=== PATIENT | female | born 1945 | race Asian ===

== ENCOUNTER 2020-08-12 11:49 | Inpatient (IN) | payer MEDICARE ==
[~2020-08-12] VITALS: Ht 157.5 cm; Wt 51.3 kg
[2020-08-12] MEDS ORDERED: BISA5TAB10 PO (16:52)
[2020-08-12] MEDS ORDERED: CYAN10006 IM (16:52)
[2020-08-12] MEDS ORDERED: ENOX40DI SQ (16:52)
[2020-08-12] MEDS ORDERED: OLAN10VI IM ×2 (16:52)
[2020-08-12] MEDS ORDERED: RISP0.2515 PO ×2 (16:52)
[2020-08-12] MEDS ORDERED: MELA3TAB41 PO (16:52)
[2020-08-12] MEDS ORDERED: BISACODYL (5 MG) 5 MG TABLET.DR PO PRN (18:30)
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
[2020-08-12 20:00] VITALS: BP 94/66
[2020-08-12] MEDS ORDERED: TEMAZEPAM 7.5 MG CAPSULE PO PRN (20:00)
[2020-08-12] MEDS ORDERED: MAGNESIUM HYDROXIDE 30 ML UDC PO PRN (20:00)
[2020-08-12] MEDS ORDERED: LORAZEPAM 0.5 MG TABLET PO PRN (20:00)
[2020-08-12] MEDS ORDERED: BLOOD SUGAR DIAGNOSTIC 1 EACH STRIP IN ONE (20:00)
[2020-08-12] MEDS ORDERED: ACETAMINOPHEN 325 MG TABLET PO PRN (20:00)
[2020-08-12] MEDS ORDERED: MAG HYDROX/AL HYDROX/SIMETH 30 ML UDC PO PRN (20:00)
[2020-08-12 20:13] VITALS: BP 94/66
--- NOTE | 2020-08-13 08:50 | NUR ---
RN-CO: MARALEONOR REFUSED TO ALLOW ME TO GET SPECIMEN FOR MRSA. SHE STATED, "GET OUT YOU BITCH OR YOU WILL GET HURT!" SHE TRIED TO THROW THE FOOD TO ME.
[2020-08-13] MEDS ORDERED: ENOXAPARIN SODIUM 40 MG/0.4 ML DISP.SYRIN SQ SCH (09:00)
[2020-08-13] MEDS ORDERED: OLANZAPINE 10 MG VIAL IM STA (12:23)
--- NOTE | 2020-08-13 12:24 | NUR ---
RN-CO: PATIENT IS REFUSING CARE, VERBALLY ABUKSIVE TO STAFF AND HER PSYCHIATRIST, TRIED TO THROW WATER TO DR GUO, REFUSED PO ATIVAN. MD ORDERED ZYPREXA 5 MG IM STAT NOTED AND CARRIED OUT.
[2020-08-13] MEDS ORDERED: OLANZAPINE 10 MG VIAL IM ONE (13:00)
[2020-08-13 16:50] VITALS: BP 130/78
--- NOTE | 2020-08-13 20:43 | NUR ---
NURSES NOTES: EKG RESULT RELAYED TO DR. GUO. MESSAGED ACKNOWLEDGED, NO NEW ORDERS GIVEN THIS TIME.
[2020-08-13] MEDS: risperiDONE-M 0.5 MG TAB.RAPDIS PO SCH (21:00)
--- NOTE | 2020-08-13 21:22 | NUR ---
NURSES NOTES: PATIENT REFUSED HER SCHEDULED MEDICATION- RISPERDAL 0.5 MG PO-PER PATIENT "YOU ARE GOING TO GIVE ME VACCINE AGAIN, WHAT? TO KILL ME?, YOU BETTER GET OUT OR ELSE" STOCK PLAN ADMINISTRATOR EXPLAINED THE PURPOSE OF THE MEDICATION, HOWEVER PATIENT STILL REFUSED.
[2020-08-14] MEDS: risperiDONE-M 0.5 MG TAB.RAPDIS PO SCH ×2 (08:01→21:00)
--- NOTE | 2020-08-14 08:01 | NUR ---
RN-CO: PATIENT REFUSED HER RISPERDAL PO. ENC 3X THEN SHE GOT AGITATED.
--- NOTE | 2020-08-14 09:53 | NUR ---
JOSEFA Initial Discharge Plan: Patient was currently residing at [address] [place] [address] ([phone]) renting a room. Pt is now allowed to return due to homicidal ideation and attempt. Patient's son Chris Acuna ([phone]) is involved and is requesting SNF placement. JOSEFA will continue to work with patient, family, and MD to ensure a safe and proper discharge plan.
--- NOTE | 2020-08-14 09:53 | NUR ---
JOSEFA Family Contact: JOSEFA spoke with patient's son Chris Acuna ([phone]) regarding treatment and discharge plan. He is requesting SNF placement nad stated Addendum: 08/14/20 at 0954 by DANIEL CANTU He is requesting SNF placement and stated pt cannot return to her current residence due to homicidal ideation ad attempt.
--- NOTE | 2020-08-14 10:03 | NUR ---
RN-CO: PATIENT REFUSED HER LAB WORK IN AM.
--- NOTE | 2020-08-14 10:10 | NUR ---
JOSEFA Coordination of Care: This SW sent patient's clinicals to David rowan from [facility] ([phone] for review. This SW sent H & P notes, medication list, and laboratory. Addendum: 08/14/20 at 1354 by DANIEL CANTU Patient got denied from [facility] however is accepted to sister facility [facility].
--- NOTE | 2020-08-14 10:22 | NUR ---
PC Hearing: Pt had probable cause hearing today and [phone] hold is upheld for GD.
--- NOTE | 2020-08-14 14:41 | NUR ---
RN-CO: PATIENT REFUSED TO PROVIDE URINE SPECIMEN. ASKED 3X AND SHE GOT UPSET.
--- NOTE | 2020-08-14 16:42 | NUR ---
RNTomasCO: PT REFUSED BLOOD DRAW AGAIN.
--- NOTE | 2020-08-14 18:24 | NUR ---
RN-CO: Patient remains isolative, angry and with pressured speech. Noted she was talking to unseen others and cursing. She refused to participate in group activities, and provide urine specimen.
[2020-08-15] MEDS: CYANOCOBALAMIN 1,000 MCG/ML VIAL IM SCH (09:00)
[2020-08-15] MEDS: risperiDONE-M 0.5 MG TAB.RAPDIS PO SCH ×2 (09:00→17:03)
--- NOTE | 2020-08-15 09:00 | NUR ---
RN NOTE- PT THREATENING POSTURING USING PROFANITY, REFUSING RX NOT DIRECTABLE MD AWARE.".
--- NOTE | 2020-08-15 09:45 | NUR ---
RN NOTE- PT AGGRESSIVE POSTURING AND THREATENING. REFUSING RX, DR GUO ORDERED ZYPREXA 5 MG IM. COMPLIED W SECURITY AT BEDSIDE
[2020-08-15] MEDS ORDERED: OLANZAPINE 10 MG VIAL IM STA (09:46)
--- NOTE | 2020-08-15 13:24 | NUR ---
Individual Counseling: certified social workers in health care met with patient for brief counseling to help address patients presenting problem with labile mood. Patient was verbally abusive towards this SW and asked SW to leave from her room. SW was unable to conduct individual counseling.
--- NOTE | 2020-08-15 14:16 | NUR ---
Court Contact: This SW contacted court ([phone]) and spoke with Rose who confirmed that riese hearing is scheduled on 08/18 at 1:30PM. DANIEL Gilmore notified Dr. Butterfield.
--- NOTE | 2020-08-15 20:00 | NUR ---
RN NOTES : VITAL SIGNS REFUSAL PT. REFUSED VITAL SIGNS ,ENCOURAGED, RISKS BENEFITS EXPLINED , PT. STRONGLY REFUSED, WILL CONTINUITY WITH CARE.
--- NOTE | 2020-08-16 06:55 | NUR ---
RN NOTES: PT. RESTING HER BED, PT. BEHAVIOR UNCOOPERTIVE ,EASILY AGITAED, NO ACUTE DISTRESS NOTES , NO CHANGE OF CONDITION NOTED , DENIES ANY PAIN DISCOMFORT AT THIS TIME , ALL NEEDS ATTENDED AND ANTICIPATED, WILL ENDORSE TO DAY NURSE FOR CONTINUITY OF CARE .
--- NOTE | 2020-08-16 06:59 | NUR ---
RN NOTES :AM LABS REFUSAL PT. REFUSED AM LABS ,ENCOURAGED, RISKS BENEFITS EXPLINED , PT. STRONGLY REFUSED, WILL CONTINUITY WITH CARE.
[2020-08-16] MEDS: risperiDONE-M 0.5 MG TAB.RAPDIS PO SCH ×3 (08:21→17:18)
--- NOTE | 2020-08-16 10:30 | NUR ---
RN-CO: PATIENT REFUSED LAB WORKS AGAIN.
[2020-08-16] MEDS: ENSURE ENLIVE CHOC 237 ML CAN PO SCH ×2 (12:08→17:11)
[2020-08-16 16:00] VITALS: BP 114/78
--- NOTE | 2020-08-17 00:02 | NUR ---
RN NOTES: OFFERED PT. RESTORIL 7.5 MG PO PRN , TOOK OUT FROM OMNICELL , OPEN THE RESTORIL PACKAGE BUT PT. REFUSED TO TAKE , WASTE RESTORIL 7.5 MG PO PRN IN OMNICELL AND WITNESS BY ALYSSA PERDOMO RN .
--- NOTE | 2020-08-17 06:49 | NUR ---
RN NOTES: PT. RESTING HER BED, PT. BEHAVIOR UNCOOPERTIVE ,EASILY AGITAED, PARANOID,DISHELVED, NO ACUTE DISTRESS NOTES , NO CHANGE OF CONDITION NOTED , DENIES ANY PAIN DISCOMFORT AT THIS TIME , ALL NEEDS ATTENDED AND ANTICIPATED, WILL ENDORSE TO DAY NURSE FOR CONTINUITY OF CARE .
[2020-08-17] MEDS: risperiDONE-M 0.5 MG TAB.RAPDIS PO SCH ×3 (08:46→16:21)
[2020-08-17] MEDS: ENSURE ENLIVE CHOC 237 ML CAN PO SCH ×3 (08:46→16:25)
[2020-08-18] MEDS: risperiDONE-M 0.5 MG TAB.RAPDIS PO SCH (08:13)
[2020-08-18] MEDS: ENSURE ENLIVE CHOC 237 ML CAN PO SCH ×3 (08:14→15:49)
[2020-08-18] MEDS ORDERED: OLANZAPINE 10 MG VIAL IM PRN ×3 (14:30→18:00)
[2020-08-18] MEDS ORDERED: risperiDONE-M 0.5 MG TAB.RAPDIS PO SCH ×3 (14:30→22:00)
--- NOTE | 2020-08-18 15:29 | NUR ---
RN NOTE:Patient seen by dr. Borges and he canceled EKG .EKG from 08/13/[address] Borges and he said he is ok with the result .
[2020-08-18] MEDS ORDERED: LORAZEPAM INJ 2 MG/ML VIAL IM STA (15:49)
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
[2020-08-19] MEDS: ENSURE ENLIVE CHOC 237 ML CAN PO SCH ×3 (07:36→17:00)
--- NOTE | 2020-08-19 11:06 | NUR ---
Individual Intervention: SW met with the pt at bedside and attempted to conduct an individual intervention around her refusing her medications. Pt stated that she did not want to talk to the SW and stated that the SW "does not know anything." SW deemed this pt inappropriate for individual therapy at this time due to her aggression.
[2020-08-19] MEDS ORDERED: INVEGA SUSTENNA 156 MG IM ONE (12:30)
[2020-08-19 22:08] LABS: BASOPHILS # (AUTO) 0.1 /CMM (0.0-0.2); BASOPHILS % (AUTO) 1.1 % (0.0-2.0); EOSINOPHILS % (AUTO) 2.9 % (0.0-6.0); HEMATOCRIT 41 % (33-45); HEMOGLOBIN 13.5 g/dL (11.5-14.8); LYMPHOCYTES # (AUTO) 1.7 /CMM (0.8-4.8); LYMPHOCYTES % (AUTO) 25.7 % (20.0-44.0); MEAN CORPUSCULAR HGB CONC 33 g/dl (31.0-36.0); MEAN CORPUSCULAR VOLUME 94 fL (82-100); MONOCYTES # (AUTO) 0.8 /CMM (0.1-1.30); MONOCYTES % (AUTO) 11.6 % (2.0-12.0); NEUTROPHILS % (AUTO) 58.7 % (43.0-81.0); PLATELET COUNT (AUTO) 206 /CMM (150-450); RED BLOOD CELL COUNT(AUTO) 4.32 MIL/uL (4.0-5.2); WHITE BLOOD COUNT (AUTO) 6.8 K/uL (4.3-11.0)
[2020-08-19 22:24] LABS: ALANINE AMINOTRANSFERASE 24 U/L (12-78); ALBUMIN 3.2 g/dL (3.4-5.0); ALKALINE PHOSPHATASE 73 U/L (46-116); ASPARTATE AMINOTRANSFERASE 20 U/L (15-37); BILIRUBIN,TOTAL 0.3 mg/dL (0.2-1.0); CALCIUM, SERUM 8.8 mg/dL (8.5-10.1); CARBON DIOXIDE 27 mmol/L (21-32); CHLORIDE 105 mmol/L (98-107); CREATININE 0.7 mg/dL (0.6-1.3); GLUCOSE 90 mg/dL (74-106); MAGNESIUM 2.3 mg/dL (1.8-2.4); PHOSPHORUS 4.1 mg/dL (2.5-4.9); POTASSIUM 3.8 mmol/L (3.5-5.1); SODIUM SERUM 141 mmol/L (136-145); UREA NITROGEN, BLOOD 25 mg/dL (7-18)
[2020-08-20 08:00] VITALS: BP 111/75
[2020-08-20] MEDS: ENSURE ENLIVE CHOC 237 ML CAN PO SCH ×3 (08:58→16:06)
[2020-08-20 11:59] LABS: MAGNESIUM 2.4 mg/dL (1.8-2.4)
[2020-08-20 12:12] LABS: THYROID STIMULATING HORMONE 0.881 uIU/mL (0.358-3.74)
[2020-08-20 16:00] VITALS: BP 104/68
[2020-08-20 20:23] VITALS: BP 136/65
[2020-08-21] MEDS: ENSURE ENLIVE CHOC 237 ML CAN PO SCH ×3 (07:44→16:04)
--- NOTE | 2020-08-21 12:40 | NUR ---
SNF Referral: JOSEFA faxed a referral to [facility] with attention to Lovely: [phone].
--- NOTE | 2020-08-21 15:08 | NUR ---
SNF Contact: Lovely ([phone]) from [facility] contacted the SW and stated that the pt was accepted to their facility.
[2020-08-21 16:00] VITALS: BP 88/61
[2020-08-21] MEDS: DIVALPROEX SODIUM 125 MG CAP.SPRINK PO SCH ×2 (16:10→21:37)
--- NOTE | 2020-08-21 19:30 | NUR ---
GPS RN NOTE, RECEIVED PATIENT AWAKE AND IN ROOM, NO S/S OR COMPLAINTS OF PAIN AT THIS TIME. PATIENT IS DISPLAYING NO S/S OF APPARENT DISTRESS AT THIS TIME. PATIENT BREATHING IS UNLABORED WITH EQUAL RISE AND FALL OF THE CHEST. PATIENT IS ALERT AND ORIENTED X 1 ON ROOM AIR WITH A SPO2 97%. PATIENT IS SELECTIVE WITH MEDICATIONS, CONFUSED, SUSPICIOUS, AND COOPERATIVE. PATIENT DENIES SUICIDAL AND HOMICIDAL IDEATIONS AT THIS TIME. PATIENT ASSISTED WITH TURNING AND REPOSITIONING Q2HR AND PRN FOR COMFORT AND CIRCULATION. PATIENT HAS NO NEEDS AT THIS TIME. PATIENT EDUCATED ON THE USE OF THE CALL BASS. WILL CONTINUE TO MONITOR THIS PATIENT Q15 MINUTES WITH THE HELP OF STAFF TO MAINTAIN SAFETY.
[2020-08-21 20:21] VITALS: BP 99/55
[2020-08-22] MEDS: ENSURE ENLIVE CHOC 237 ML CAN PO SCH ×3 (08:19→16:34)
[2020-08-22] MEDS: DIVALPROEX SODIUM 125 MG CAP.SPRINK PO SCH ×2 (08:19→20:21)
[2020-08-22] MEDS: CYANOCOBALAMIN 1,000 MCG/ML VIAL IM SCH (08:43)
--- NOTE | 2020-08-22 09:00 | NUR ---
RN NOTE- RN NOTE ALERT ORIENTED TO PERSON PLACE CONFUSED, DELUSIONAL PARANOID GUARDED, PO INTAKE GOOD MED COMPLIANT ISOLATIVE OPPOSITIONAL
[2020-08-22 20:07] VITALS: BP 137/80
--- NOTE | 2020-08-23 08:00 | NUR ---
RECEIVED PT. IN BED,PARANOID,DELUSIONAL,VERY SUSPICIOUS.ALERT AND ORIENTED X3.ISOLATIVE.
[2020-08-23] MEDS: DIVALPROEX SODIUM 125 MG CAP.SPRINK PO SCH ×2 (09:15→21:24)
[2020-08-23] MEDS: ENSURE ENLIVE CHOC 237 ML CAN PO SCH ×3 (09:17→16:02)
--- NOTE | 2020-08-23 12:18 | NUR ---
given ativan for agitation.
--- NOTE | 2020-08-23 17:34 | NUR ---
REFUSED VS ALL DAY'
[2020-08-23 20:04] VITALS: BP 119/71
[2020-08-23 20:05] VITALS: BP 119/71
[2020-08-24 08:00] VITALS: BP 115/74
[2020-08-24] MEDS: ENSURE ENLIVE CHOC 237 ML CAN PO SCH ×3 (08:19→16:12)
[2020-08-24] MEDS: DIVALPROEX SODIUM 125 MG CAP.SPRINK PO SCH ×3 (08:35→21:00)
[2020-08-24 16:00] VITALS: BP 107/68
[2020-08-24 20:00] VITALS: BP 102/64
--- NOTE | 2020-08-24 21:02 | NUR ---
GPS RN NOTES: PT REFUSED 2100 DEPAKOTE/125MG 1 TAB PO ORDERED. WILL CONTINUE TO MONITOR.
--- NOTE | 2020-08-25 06:42 | NUR ---
GPS RN CLOSING NOTES: PATIENT AWAKE, A/O X2-3. SLEPT 6 HR THIS SHIFT. NO S/S OF DISTRESS. RESPIRATION EVEN AND UNLABORED WITH EQUAL RISE AND FALL OF THE CHEST ON ROOM AIR. SAFETY PRECAUTION MAINTAINED, BED IN LOWEST POSITION AND LOCKED. Q15 MINUTES SAFETY ROUND CONTINUED. ALL PATIENT CARE NEEDS MET ANTICIPATED. WILL CONTINUE TO MONITOR PATIENT FOR MOOD, BEHAVIOR AND SAFETY AND ENDORSE TO AM SHIFT.
--- NOTE | 2020-08-25 07:30 | NUR ---
GPS RN NOTES BEDSIDE ENDORSEMENT DONE W/ PREVIOUS SHIFT. PATIENT IN BED AWAKE AND VERBALLY RESPONSIVE. BREATHING EVEN AND UNLABORED, ON ROOM AIR, NOT IN ACUTE DISTRESS. PATIENT A/O X1-2, VERBALIZES ACCEPTING HELP ONLY FROM HER , UNABLE TO STATE 'S NAME. ABLE TO SPEAK JAPANESE/TAGALOG. SAFETY PRECAUTIONS IN PLACE. WILL CONTINUE TO MONITOR.
[2020-08-25] MEDS: ENSURE ENLIVE CHOC 237 ML CAN PO SCH ×3 (07:55→16:08)
[2020-08-25 08:00] VITALS: BP 109/68
[2020-08-25] MEDS: DIVALPROEX SODIUM 125 MG CAP.SPRINK PO SCH ×2 (08:40→16:10)
[2020-08-25 16:00] VITALS: BP 117/70
--- NOTE | 2020-08-25 19:10 | NUR ---
GPS RN NOTES PATIENT IN THE ROOM AWAKE AND VERBALLY RESPONSIVE. PATIENT REQUIRED CONSTANT REDIRECTION W/ MEDICATION COMPLIANCE; NO INJURY NOTED. SAFETY PRECS MAINTAINED. WILL ENDORSE TO HACKLER DOLL WIGS RN FOR CHRISTOPHER.
[2020-08-25 19:36] VITALS: BP 104/72
--- NOTE | 2020-08-25 19:50 | NUR ---
RN NOTES : UNABLE TO SCANE BAR CODE ,ELLE SUSTENNA 78 MG IM GIVEN PER MD ORDERS WITH STAFF SUMAYA RN, MISTY RN AND FIRE LIEUTENANT MARINE, PT. TOLERATE WELL , WILL CONTINUE WITH MONITOR.
[2020-08-25] MEDS ORDERED: MISCELLANEOUS MED 1 EA EA XX ONE (20:00)
--- NOTE | 2020-08-25 20:30 | NUR ---
RN NOTES: ELLE JOSEPH PT.TOLERATE WELL , VITAL SINS WNL , BP 110 /66 ,P 80 , RESP 20, SO2 98% ,TEMP 98.0 , NO ACUTE DISTRESS NOTED, PT. DENIES ANY PAIN DISCOMFORT ATT HIS TIME , WILL CONTINUE TO MONITOR.
--- NOTE | 2020-08-26 06:31 | NUR ---
RN NOTES: PT. REFUSED AM LABS ,ENCOURAGED X3 PT. STRONGLY REFUSED, ENDORSE TO AM NURSE FOR CONTINUITY WITH CARE.
--- NOTE | 2020-08-26 07:43 | NUR ---
RN NOTES: PT. RESTING IN HER BED, PT. BEHAVIOR COOPERTIVE IN SHIFT, NO ACUTE DISTRESS NOTES , NO CHANGE OF CONDITION NOTED , DENIES ANY PAIN DISCOMFORT AT THIS TIME , ALL NEEDS ATTENDED AND ANTICIPATED, WILL ENDORSE TO DAY NURSE FOR CONTINUITY OF CARE .
[2020-08-26] MEDS: ENSURE ENLIVE CHOC 237 ML CAN PO SCH ×3 (08:09→16:40)
[2020-08-26] MEDS: DIVALPROEX SODIUM 125 MG CAP.SPRINK PO SCH ×3 (09:21→17:25)
[2020-08-26] MEDS ORDERED: risperiDONE-M 0.5 MG TAB.RAPDIS PO SCH (13:00)
--- NOTE | 2020-08-26 13:39 | NUR ---
Individual Intervention: SW attempted to meet with the pt at bedside and discuss her discharge planning but the pt refused to speak to the SW and stated, "I do not want to talk to you. I need pants." Pt kept repeating herself even after the SW stated that she would get pants for her. Pt appeared to be agitated and inappropriate for therapy.
--- NOTE | 2020-08-26 15:22 | NUR ---
ALERT AND ORIENTED X2-3.VERY SUSPICIOUS,REFUSING VS.ISOLATIVE.IN ROOM.
[2020-08-26 19:09] LABS: ALBUMIN 3.3 g/dL (3.4-5.0); BILIRUBIN,TOTAL 0.1 mg/dL (0.2-1.0); CALCIUM, SERUM 8.9 mg/dL (8.5-10.1); CREATININE 0.9 mg/dL (0.6-1.3); POTASSIUM 3.8 mmol/L (3.5-5.1); TOTAL PROTEIN, SERUM 7.2 g/dL (6.4-8.2)
[2020-08-26 19:31] VITALS: BP 118/80
[2020-08-26 19:48] LABS: BASOPHILS % (AUTO) 0.8 % (0.0-2.0); HEMATOCRIT 41 % (33-45); HEMOGLOBIN 13.6 g/dL (11.5-14.8); LYMPHOCYTES # (AUTO) 1.7 /CMM (0.8-4.8); LYMPHOCYTES % (AUTO) 26.9 % (20.0-44.0); MEAN CORPUSCULAR HGB CONC 33 g/dl (31.0-36.0); MEAN CORPUSCULAR VOLUME 95 fL (82-100); MONOCYTES # (AUTO) 0.5 /CMM (0.1-1.30); MONOCYTES % (AUTO) 8.1 % (2.0-12.0); NEUTROPHILS # (AUTO) 3.8 /CMM (1.8-8.9); NEUTROPHILS % (AUTO) 61.2 % (43.0-81.0); PLATELET COUNT (AUTO) 210 /CMM (150-450); RED BLOOD CELL COUNT(AUTO) 4.36 MIL/uL (4.0-5.2); WHITE BLOOD COUNT (AUTO) 6.1 K/uL (4.3-11.0)
[2020-08-27] MEDS: ENSURE ENLIVE CHOC 237 ML CAN PO SCH ×3 (08:43→16:47)
[2020-08-27] MEDS: DIVALPROEX SODIUM 125 MG CAP.SPRINK PO SCH ×4 (08:43→17:03)
--- NOTE | 2020-08-27 09:30 | NUR ---
very angry,raising arm with female rn approaching,in attempt to give meds iin am.refused meds.
--- NOTE | 2020-08-27 09:35 | NUR ---
rn spoke with dr. ji,alternative method suggested to give pt. meds.
[2020-08-27] MEDS: risperiDONE-M 0.5 MG TAB.RAPDIS PO SCH ×2 (10:15→17:03)
--- NOTE | 2020-08-27 10:15 | NUR ---
rn brought in male coworker with her and pt. took am meds.
--- NOTE | 2020-08-27 11:03 | NUR ---
Probable Cause Hearing: Pts [phone] hold was upheld for grave disability.
--- NOTE | 2020-08-27 13:45 | NUR ---
Family Contact: JOSEFA called the patient's son Chris Acuna ([phone]) and left a voicemail that informed him that the pt is going to be discharged to [facility] tomorrow.
--- NOTE | 2020-08-27 13:54 | NUR ---
SNF Contact: SW contactd Lovely ([phone]) from [facility] and informed her that the pt will be discharged the following day.
--- NOTE | 2020-08-27 15:43 | NUR ---
at this time refusing ct of head.
--- NOTE | 2020-08-28 05:51 | NUR ---
NURSES NOTES: NURSE ASSIGNED TRIED TO DO COVID SWAB TESTING FOR PATIENT. SHE INITIALLY AGREED,BUT WHEN NURSE BROUGHT IN THE STUFF, PATIENT SUDDENLY REFUSED. EXPLAINED TO PATIENT THE NEED FOR THE COVID TESTING BUT PATIENT STILL REFUSED.
--- NOTE | 2020-08-28 08:08 | NUR ---
PER RN , PT REFUSING EXAM
[2020-08-28] MEDS: ENSURE ENLIVE CHOC 237 ML CAN PO SCH ×2 (08:38→12:56)
[2020-08-28] MEDS: risperiDONE-M 0.5 MG TAB.RAPDIS PO SCH (09:00)
[2020-08-28] MEDS: DIVALPROEX SODIUM 125 MG CAP.SPRINK PO SCH ×2 (09:00→12:44)
--- NOTE | 2020-08-28 09:38 | NUR ---
RN-CO: Patient is alert and oriented x 3-4, able to make needs known. She denied suicidal and homicidal ideation. Denied auditory and visual hallucination. NO acute distress noted. She was medically cleared for discharge by Dr Linn and Dr Butterfield ordered to discontinue hold and discharge her to [facility]. Report was given to Sarah BHATIA. Patient refused PNA and Flu vaccine when offered. She also doesn't want skin check. Her discharge papers were discussed to her and her medications and she verbalized understanding. All belongings will be given back to her upon discharge.
--- NOTE | 2020-08-28 13:44 | NUR ---
RN-CO: YOVANNY MCCLELLAN [phone] MADE AWARE AND AGREED OF THE PLACEMENT.
--- NOTE | 2020-08-28 14:58 | NUR ---
Discharge Note: Pt will be discharged to [facility] SNF located at [address] [place] [address]; . Pt will be transported via [facility] at 12PM. Pts son Chris Acuna ([phone]) was made aware of the placement. Upon discharge, the pt appears to be in a dysphoric mood and presents with a distressed affect. Pt appears to be alert and oriented x4 (time, place, self, and situation). Pt denies both suicidal and homicidal ideation as well as auditory and visual hallucinations. Pt will be under the care of her psychiatrist, Dr. Butterfield, located at [address] [facility] [address], [place] [address]; and her director of archives, Dr. Murphy, located at [address] [address]; . The choice of vendor and multidisciplinary exit care form was done, printed, signed, and given to the patient.
[2020-08-28 15:30] VITALS: BP 131/89
--- NOTE | 2020-08-28 15:40 | NUR ---
RN-CO: AMBULANCE PICKED UP THE PATIENT. ALL BELONGINGS WAS GIVEN BACK.
== END 2020-08-28 15:45 | DRG 885 ==
LOC: GPS 15:13
PROVIDERS: ADMIT Psychiatry & Neurology Psychosomatic Medicine; ATTEND Nurse Practitioner Acute Care
DX: F20.9 Schizophrenia, unspecified (principal); F01.50 Vascular dementia, unspecified severity, without behavioral disturbance, psychotic disturbance, mood disturbance, and anxiety; F29 Unspecified psychosis not due to a substance or known physiological condition; F41.9 Anxiety disorder, unspecified; R63.4 Abnormal weight loss; Z68.20 Body mass index [BMI] 20.0-20.9, adult; R45.1 Restlessness and agitation; Z91.14 Patient's other noncompliance with medication regimen; Z87.891 Personal history of nicotine dependence
CPT/HCPCS: 36415; 71045-TC; 80053-TC; 80061-TC; 80164-TC; 82962-TC; 83735-TC; 84100-TC; 84439-TC; 84443-TC; 85025-TC; 87081-TC; 93307-TC; J2060; J3420; J3490

== ENCOUNTER 2020-09-05 10:14 | Outpatient (CLI) | payer MEDICARE ==
[~2020-09-05 10:14] MED LIST: BISA5TAB10 PO; CYAN10006 IM; ENOX40DI SQ; MELA3TAB41 PO
== END 2020-09-05 23:59 | disposition home or self-care (01) ==
LOC: CT 10:14
PROVIDERS: ATTEND Internal Medicine
DX: I67.82 Cerebral ischemia (principal); F03.90 Unspecified dementia, unspecified severity, without behavioral disturbance, psychotic disturbance, mood disturbance, and anxiety
CPT/HCPCS: 70450-TC

== ENCOUNTER 2021-04-10 08:01 | Inpatient (IN) | payer MEDICARE, OTHER ==
[~2021-04-10] VITALS: Ht 157.5 cm; Wt 47.2 kg
[2021-04-10] MEDS ORDERED: COGENTIN PO (08:31)
[2021-04-10] MEDS ORDERED: ACET-868 PO (08:31)
[2021-04-10] MEDS ORDERED: RISP0.5T5 PO (08:31)
[2021-04-10] MEDS ORDERED: MULT-447 PO (08:31)
[2021-04-10] MEDS ORDERED: MAGN400O6 PO (08:31)
[2021-04-10] MEDS ORDERED: CRAN425C6 PO (08:31)
--- NOTE | 2021-04-10 08:40 | NUR ---
THE PATIENT BIBPA HITTING STAFF FROM SNF PER EMS. THE PATIENT IS ALERT AND ORIENTED X3. DENIES SI/HI. DENIES PAIN. IN ROOM AIR AND DENIES SOB. RESPIRATION REGULAR AND UNLABORED. WILL CONTINUE TO MONITOR THE PATIENT.
--- NOTE | 2021-04-10 08:40 | NUR ---
LEFT A VOICEMAIL TO PSYCH CLINICIAN MAGO SULLIVAN.
--- NOTE | 2021-04-10 08:50 | NUR ---
ASKED NURSING SUP FOR BED. WAITING FOR RESPONSE.
[2021-04-10 08:56] LABS: BASOPHILS % (AUTO) 0.7 % (0.0-2.0); EOSINOPHILS % (AUTO) 1.9 % (0.0-6.0); HEMATOCRIT 44 % (33-45); HEMOGLOBIN 14.6 g/dL (11.5-14.8); LYMPHOCYTES # (AUTO) 1.5 K/uL (0.8-4.8); LYMPHOCYTES % (AUTO) 29.3 % (20.0-44.0); MEAN CORPUSCULAR HGB CONC 33 g/dl (31.0-36.0); MEAN CORPUSCULAR VOLUME 94 fL (82-100); MONOCYTES # (AUTO) 0.5 K/uL (0.1-1.30); MONOCYTES % (AUTO) 9.2 % (2.0-12.0); NEUTROPHILS % (AUTO) 58.9 % (43.0-81.0); PLATELET COUNT (AUTO) 225 K/uL (150-450); RED BLOOD CELL COUNT(AUTO) 4.67 MIL/uL (4.0-5.2)
--- NOTE | 2021-04-10 09:09 | NUR ---
COVID SWAB DONE AND SENT TO THE LAB
[2021-04-10 09:15] LABS: BILIRUBIN,URINE NEGATIVE (NEGATIVE); COLOR,URINE YELLOW (YELLOW); LEUKOCYTE ESTERASE ,URINE SMALL (NEGATIVE); NITRITE, URINE NEGATIVE (NEGATIVE); PROTEIN,URINE NEGATIVE (NEGATIVE); UGLUCOSE NEGATIVE (NEGATIVE); UROBILINOGEN,URINE 0.2 EU/dL (0.2)
[2021-04-10 09:16] LABS: ALANINE AMINOTRANSFERASE 21 U/L (12-78); ALBUMIN 3.8 g/dL (3.4-5.0); ALCOHOL, BLOOD < 3 mg/dL (0-0); ALKALINE PHOSPHATASE 67 U/L (46-116); ASPARTATE AMINOTRANSFERASE 21 U/L (15-37); BILIRUBIN,DIRECT 0.2 mg/dL (0.0-0.2); BILIRUBIN,TOTAL 0.6 mg/dL (0.2-1.0); CALCIUM, SERUM 8.6 mg/dL (8.5-10.1); CARBON DIOXIDE 31 mmol/L (21-32); CHLORIDE 106 mmol/L (98-107); CREATININE 0.8 mg/dL (0.6-1.3); GLUCOSE 108 mg/dL (74-106); POTASSIUM 3.8 mmol/L (3.5-5.1); SODIUM SERUM 140 mmol/L (136-145); TOTAL PROTEIN, SERUM 7.8 g/dL (6.4-8.2); UREA NITROGEN, BLOOD 13 mg/dL (7-18)
[2021-04-10 09:19] LABS: ACETAMINOPHEN < 10 ug/ml (10-30)
--- NOTE | 2021-04-10 10:01 | NUR ---
ROOM 220-A
--- NOTE | 2021-04-10 10:03 | NUR ---
CALLED ART AND ON THE WAY TO SEE THE PT.
[2021-04-10 10:08] LABS: BACTERIA,URINE Few /HPF (None Seen); RBC,URINE 0-2 /HPF (0-2); SQUAMOUS EPITHELIAL CELL,UR Moderate /HPF (None Seen)
--- NOTE | 2021-04-10 10:19 | NUR ---
REPORT GIVEN TO NURSE VILLALPANDO FROM GPS UNIT
--- NOTE | 2021-04-10 11:40 | NUR ---
THE PATIENT IS TRANFERED TO ROOM 220-A IN STABLE CONDITION AND PER POLICY.
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
[2021-04-10] MEDS ORDERED: MAG HYDROX/AL HYDROX/SIMETH 30 ML UDC PO PRN (12:00)
[2021-04-10] MEDS ORDERED: LORAZEPAM 0.5 MG TABLET PO PRN (12:00)
[2021-04-10] MEDS ORDERED: ACETAMINOPHEN 325 MG TABLET PO PRN (12:00)
[2021-04-10] MEDS ORDERED: TEMAZEPAM 7.5 MG CAPSULE PO PRN (12:00)
[2021-04-10] MEDS ORDERED: BLOOD SUGAR DIAGNOSTIC 1 EACH STRIP IN ONE (12:00)
[2021-04-10] MEDS ORDERED: MAGNESIUM HYDROXIDE 30 ML UDC PO PRN (12:00)
--- NOTE | 2021-04-10 12:39 | NUR ---
JOSEFA Initial Discharge Note: Patient currently resides at [facility] and will return back upon dc. JOSEFA confirmed with Luis acosta who stated pt is welcomed back. JOSEFA will work with the family and MD to coordinate appropriate discharge.
[2021-04-10] MEDS: CEPHALEXIN MONOHYDRATE 250 MG CAPSULE PO SCH ×2 (13:21→20:51)
--- NOTE | 2021-04-10 15:20 | NUR ---
JOSEFA Family Contact: SW contacted patient's son Chris ([phone]) and discussed treatment/discharge plan.
[2021-04-10 16:00] VITALS: BP 114/71
[2021-04-10] MEDS: risperiDONE 1 MG TABLET PO SCH ×2 (17:00→17:26)
--- NOTE | 2021-04-10 17:34 | NUR ---
RN-NOTES PATIENT REFUSED RISPERDAL 1MG P.O DESPITE EXPLANATIONS OF THE RISK AND BENEFITS. STATED" I DON'T TAKE ANYMORE MEDICINE". OFFERED X3
[2021-04-10 20:10] VITALS: BP 115/77
--- NOTE | 2021-04-11 05:53 | NUR ---
RN NOTES: PT. REFUSED AM LABS , ENCOURAGED X3 , RISKS AND BENEFITS EXPLINED , PT. BEHAVIOR UNCOOPERTIVE ,EASILY AGITATED, PER LAB WILL TRYING LATER AGAIN.
[2021-04-11 08:00] VITALS: BP 114/69
[2021-04-11] MEDS: CEPHALEXIN MONOHYDRATE 250 MG CAPSULE PO SCH ×3 (09:00→21:00)
[2021-04-11] MEDS: risperiDONE 1 MG TABLET PO SCH ×2 (09:00→17:00)
--- NOTE | 2021-04-11 09:25 | NUR ---
RN-NOTES PATIENT REFUSED ALL 0900AM MEDICATIONS INCLUDING RISPERDAL 1MG P.O AND KEFLEX ( ATB) P.O. OFFERED X3, PATIENT STATED" NO MORE MEDICINE,I DON'T CARE ABOUT MEDICINE". Addendum: 04/11/21 at 0955 by KWASI CUENCA RN SHAQUILLE GROVES MADE AWARE OF PATIENT ATB REFUSAL
--- NOTE | 2021-04-11 13:38 | NUR ---
RN-NOTES PATIENT REFUSED KEFLEX 250MG P.O. OFFERED X3.
--- NOTE | 2021-04-11 15:00 | NUR ---
RN-NOTES PATIENT REFUSED LAB DRAW DESPITE EXPLANATIONS OF THE RISK AND BENEFITS. ATTEMPTED X3.
[2021-04-11 16:00] VITALS: BP 119/71
--- NOTE | 2021-04-11 17:20 | NUR ---
RN-NOTES PATIENT STILL REFUSED RISPERDAL 1MG P.O, OFFERED X3
[2021-04-11 19:55] VITALS: BP 104/69
--- NOTE | 2021-04-11 20:06 | NUR ---
RN NOTE: LAB REFUSAL LINDA FROM LAB CALLED TO INFORM THAT PATIENT HAS BEEN REFUSING LIPID PANEL, CREATININE, HGBA1C, CMP X 3 & ORDER WILL BE CANCELLED. PER AM RN REPORT, PATIENT IS VERY UNCOOPERATIVE WITH LABS, MEDICINES & ADL CARE. NON COMPLAINT BUT TAKES GOOD PO INTAKE
[2021-04-11 20:10] VITALS: BP 104/69
--- NOTE | 2021-04-11 20:42 | NUR ---
RN NOTE DR. GUO NOTIFIED ABOUT PATIENT IS BEING UNCOOPERATIVE WITH LAB DRAW & LAB ORDERS HAS BEEN CANCELLED. DR. ROCHE REORDERED CMP, CREATININE, HGBA1C & LIPID PANEL IN AM ON 04/12/21. ORDER NOTED & CARRIED OUT. WILL CONTINUE TO MONITOR.
--- NOTE | 2021-04-11 21:44 | NUR ---
RN NOTE: MEDICATION REFUSAL PATIENT REFUSED KEFLEX 250 MG ORDERED X 3, DESPITE OF RISKS & BENEFITS EXPLANATIONS. PATIENT IS VERY UNCOOPERATIVE, NON COMPLAINT WITH MEDICATIONS & PLAN OF CARE. DR. GUO IS AWARE.
--- NOTE | 2021-04-12 06:06 | NUR ---
RN NOTE PATIENT REFUSED LABS THIS MORNING DESPITE OF RISKS & BENEFITS EXPLANATIONS, PATIENT IS NON COMPLAINT WITH PLAN OF CARE.
[2021-04-12 08:00] VITALS: BP 109/75
[2021-04-12] MEDS: CEPHALEXIN MONOHYDRATE 250 MG CAPSULE PO SCH ×3 (08:21→21:00)
[2021-04-12] MEDS: risperiDONE 1 MG TABLET PO SCH ×2 (08:22→17:00)
[2021-04-12 16:00] VITALS: BP 98/68
[2021-04-12 19:50] VITALS: BP 120/60
[2021-04-12 19:58] VITALS: BP 120/60
--- NOTE | 2021-04-12 21:36 | NUR ---
RN NOTE: MEDICATION REFUSAL PATIENT REFUSED KEFLEX 250 MG ORDERED X 3, DESPITE OF RISKS & BENEFITS EXPLANATIONS. PATIENT IS VERY UNCOOPERATIVE, NON COMPLAINT WITH MEDICATIONS & PLAN OF CARE.
--- NOTE | 2021-04-13 06:29 | NUR ---
RN NOTE PATIENT ALLOWED WATCH ENGINEER TO DRAW BLOOD FOR AM LABS AT THIS TIME. WAITING FOR LAB RESULTS.
[2021-04-13 08:00] VITALS: BP 125/72
[2021-04-13 08:21] LABS: ALBUMIN 3.5 g/dL (3.4-5.0); BILIRUBIN,TOTAL 0.3 mg/dL (0.2-1.0); CALCIUM, SERUM 8.7 mg/dL (8.5-10.1); CREATININE 0.7 mg/dL (0.6-1.3); TOTAL PROTEIN, SERUM 7.5 g/dL (6.4-8.2)
[2021-04-13] MEDS: CEPHALEXIN MONOHYDRATE 250 MG CAPSULE PO SCH ×3 (08:31→21:00)
[2021-04-13] MEDS: risperiDONE 1 MG TABLET PO SCH ×2 (08:32→16:10)
--- NOTE | 2021-04-13 08:32 | NUR ---
RN NOTE: MEDICATION REFUSAL PT REFUSED AM KEFLEX AND RISPERDAL. ATTEMPTED TO EDUCATE PT RE IMPORTANCE OF MEDICATION COMPLIANCE. PT CONT'D TO REFUSE X 3
--- NOTE | 2021-04-13 12:24 | NUR ---
RN NOTE: MEDICATION REFUSAL PT REFUSED 1300 KEFLEX. ATTEMPTED TO EDUCATE PT RE IMPORTANCE OF MEDICATION COMPLIANCE. PT CONT'D TO REFUSE X 3. PT IS EASILY AGITATED AND IRRITABLE.
[2021-04-13 16:00] VITALS: BP 107/71
--- NOTE | 2021-04-13 16:11 | NUR ---
RN NOTE: MEDICATION REFUSAL PT REFUSED 1700 RISPERDAL. ATTEMPTED TO EDUCATE PT RE IMPORTANCE OF MEDICATION COMPLIANCE. PT CONT'D TO REFUSE X 3.
[2021-04-13 20:10] VITALS: BP 100/56
[2021-04-14 08:00] VITALS: BP 114/68
[2021-04-14] MEDS: risperiDONE 1 MG TABLET PO SCH ×3 (09:00→17:00)
[2021-04-14] MEDS: CEPHALEXIN MONOHYDRATE 250 MG CAPSULE PO SCH ×3 (09:00→20:13)
--- NOTE | 2021-04-14 09:13 | NUR ---
RN NOTE: MEDICATION REFUSAL PT REFUSED AM KEFLEX AND RISPERDAL. ATTEMPTED TO EDUCATE PT RE IMPORTANCE OF MEDICATION COMPLIANCE. PT CONT'D TO REFUSE X 3
[2021-04-14] MEDS: OLANZAPINE 10 MG VIAL IM PRN ×3 (12:54→17:29)
--- NOTE | 2021-04-14 12:54 | NUR ---
RN NOTE: MEDICATION REFUSAL PT REFUSED RISPERDAL 1MG PO. ATTEMPTED TO EDUCATE PT RE IMPORTANCE OF MEDICATION COMPLIANCE. PT CON'TD TO REFUSE X 3. ZYPREXA 5MG IM ADMINISTERED TO LEFT BUTTOCK. PT TOLERATED WELL
[2021-04-14 16:00] VITALS: BP_SYST 95; BP_SYST 96; BP_DIAS 65
--- NOTE | 2021-04-14 17:35 | NUR ---
RN NOTE: MEDICATION REFUSAL PT REFUSED 17OO RISPERDAL. ATTEMPTED TO EDUCATE PT RE IMPORTANCE OF MEDICATION COMPLIANCE. PT CONT'D TO REFUSE X 3. ZYPREXA 5MG IM ADMINISTERED TO LEFT BUTTOCK. PT TOLERATED WELL.
--- NOTE | 2021-04-14 20:13 | NUR ---
hammer runner/gps notes: pt. refused hs cephalexin 250mg po as ordered. offered 3x. explained risk and benefits. pt. still refused.
[2021-04-14 20:49] VITALS: BP 99/68
[2021-04-15 08:00] VITALS: BP 106/63
[2021-04-15] MEDS: CEPHALEXIN MONOHYDRATE 250 MG CAPSULE PO SCH (10:22)
[2021-04-15] MEDS: risperiDONE 1 MG TABLET PO SCH ×2 (10:22→18:40)
--- NOTE | 2021-04-15 13:22 | NUR ---
RN-CO: DR LEIGHTON SIBLEY (CRUDE TESTER) SEEN PT AND ORDERED EKG STAT, NOTED AND CARRIED OUT.
[2021-04-15 16:00] VITALS: BP 101/64
[2021-04-15 20:00] VITALS: BP 105/68
[2021-04-16 08:00] VITALS: BP 103/76
[2021-04-16] MEDS: risperiDONE 1 MG TABLET PO SCH ×2 (08:19→16:32)
[2021-04-16] MEDS ORDERED: OLANZAPINE 10 MG VIAL IM PRN (11:00)
[2021-04-16 16:00] VITALS: BP 106/71
[2021-04-16] MEDS: BENZTROPINE MESYLATE (1 MG) 1 MG TABLET PO SCH (16:32)
[2021-04-16 20:00] VITALS: BP 107/64
[2021-04-17] MEDS: risperiDONE 1 MG TABLET PO SCH (08:56)
[2021-04-17] MEDS: BENZTROPINE MESYLATE (1 MG) 1 MG TABLET PO SCH ×2 (08:56→17:03)
[2021-04-17 10:41] VITALS: BP 108/66
[2021-04-17] MEDS ORDERED: PALIPERIDONE PALMITATE 156 MG/ML SYRINGE IM ONE (11:00)
[2021-04-17 16:00] VITALS: BP 109/77
[2021-04-17 20:31] VITALS: BP 106/70
[2021-04-18 08:00] VITALS: BP 100/69
[2021-04-18] MEDS: BENZTROPINE MESYLATE (1 MG) 1 MG TABLET PO SCH ×2 (09:03→18:00)
[2021-04-18 16:00] VITALS: BP 104/56
[2021-04-18 19:41] VITALS: BP 102/69
[2021-04-19 08:00] VITALS: BP 108/71
[2021-04-19] MEDS: BENZTROPINE MESYLATE (1 MG) 1 MG TABLET PO SCH ×2 (08:57→16:14)
[2021-04-19 16:00] VITALS: BP 100/67
[2021-04-19 19:34] VITALS: BP 115/74
[2021-04-20 08:00] VITALS: BP 109/69
[2021-04-20] MEDS: BENZTROPINE MESYLATE (1 MG) 1 MG TABLET PO SCH ×2 (09:00→17:00)
[2021-04-20] MEDS: risperiDONE 1 MG TABLET PO SCH ×2 (11:30→21:00)
[2021-04-20] MEDS: OLANZAPINE 10 MG VIAL IM PRN ×2 (11:52→21:38)
[2021-04-20 16:00] VITALS: BP 101/62
[2021-04-20 20:00] VITALS: BP 105/78
[2021-04-21 08:00] VITALS: BP 104/74
[2021-04-21] MEDS: BENZTROPINE MESYLATE (1 MG) 1 MG TABLET PO SCH ×2 (08:44→17:00)
[2021-04-21] MEDS: risperiDONE 1 MG TABLET PO SCH ×2 (08:45→20:47)
[2021-04-21 16:00] VITALS: BP 100/58
[2021-04-21 20:00] VITALS: BP 158/73
[2021-04-21 20:18] VITALS: BP 158/73
[2021-04-21 21:25] VITALS: BP 145/78
[2021-04-22 08:00] VITALS: BP 106/69
[2021-04-22] MEDS: risperiDONE 1 MG TABLET PO SCH ×2 (09:09→21:12)
[2021-04-22] MEDS: BENZTROPINE MESYLATE (1 MG) 1 MG TABLET PO SCH ×2 (09:09→16:36)
[2021-04-22 16:00] VITALS: BP 100/57
[2021-04-22 20:00] VITALS: BP 95/63
[2021-04-23 08:00] VITALS: BP 104/67
--- NOTE | 2021-04-23 08:57 | NUR ---
JOSEFA Family Contact: SW contacted patient's son Chris ([phone]) and notified pt will be discharged 04/24 back to [facility].
[2021-04-23] MEDS: BENZTROPINE MESYLATE (1 MG) 1 MG TABLET PO SCH ×2 (08:58→16:15)
--- NOTE | 2021-04-23 12:15 | NUR ---
DR. GUO IN THE UNIT AND SHOWED THE EKG RESULT AND NO NEW ORDER.
[2021-04-23 16:00] VITALS: BP 104/60
[2021-04-23] MEDS ORDERED: PALIPERIDONE PALMITATE 234 MG/1.5 ML SYRINGE IM ONE (17:00)
[2021-04-23] MEDS ORDERED: PALIPERIDONE PALMITATE 156 MG/ML SYRINGE IM ONE (17:00)
[2021-04-23 20:00] VITALS: BP 96/59
[2021-04-24] MEDS: BENZTROPINE MESYLATE (1 MG) 1 MG TABLET PO SCH (07:54)
[2021-04-24 08:00] VITALS: BP 104/64
--- NOTE | 2021-04-24 08:20 | NUR ---
SW Discharge Note: Patient will be discharged to care home facility [facility] [address] [place] [address]; ([phone]). Please arrange transportation. Head Of Quality spoke with Luis acosta at [facility] ([phone]) who stated patient will be accepted at facility today. Patients is aware and agreeable. Patient is alert and oriented x2 and is not able to plan for self-care at this time but is willing to accept care provided for her at the facility. Patient denies suicidal or homicidal ideation. Patients son Chris ([phone]) is aware and agreeable with discharge plans. Patient will follow-up with (Psychiatrist) Dr. Butterfield [address], [place] [address]; ([phone]) and [address] Dr. Ríos [address], [place] [address]; ([phone]). Patient presents with euthymic mood and congruent affect.
--- NOTE | 2021-04-24 09:17 | NUR ---
Dr. Butterfield gave an order to D/C hold and D/C to [facility], to continue same meds including prn and Dr. Butterfield ordered Invega Sustenna 156 mg IM on and to follow up with psych and medical doctors. Dr. Ríos made aware of the discharge and reconciled the meds.
--- NOTE | 2021-04-24 12:42 | NUR ---
GPS/RN REPORT GIVEN TO [facility] COTTRELL. PT IS GOING TO ROOM #29
--- NOTE | 2021-04-24 13:45 | NUR ---
GPS/RN DISCHARGED PT TO [facility]. NO SI OR HI AT THE TIME OF DISCHARGE. PROPERTY RETURNED, VSS. REPORT GIVEN TO FACILITY. PT REFUSED TO SIGN D/C PAPERWORK. SKIN CLEAR ON D/C.
== END 2021-04-24 13:45 | DRG 885 ==
LOC: ER 08:04 → GPS 10:06
PROVIDERS: ADMIT Psychiatry & Neurology Psychosomatic Medicine; ATTEND Internal Medicine
DX: F20.9 Schizophrenia, unspecified (principal); N39.0 Urinary tract infection, site not specified; F03.91 Unspecified dementia, unspecified severity, with behavioral disturbance; Z87.891 Personal history of nicotine dependence; Z20.822 Contact with and (suspected) exposure to COVID-19; Z91.14 Patient's other noncompliance with medication regimen
CPT/HCPCS: 36415; 80048-TC; 80053-TC; 80061-TC; 80076-TC; 81001; 82962-TC; 85025-TC; 87081-TC; 87086-TC; G0480; J2426; J3490